=== PATIENT | female | born 1980 | race Caucasian/White ===

== ENCOUNTER 2023-02-24 19:44 | Emergency (ER) | payer BC, SELFPAY ==
[2023-02-24 19:47] VITALS: BP 134/85; PULSE 87; RESP 18; TEMP 36.8; O2SAT 99; BMI 22.7
--- NOTE | 2023-02-24 20:15 | ED_ITS ---
HPI - Wound/Laceration General Date Seen: 02/24/23 Chief Complaint: Laceration/Wound Stated Complaint: Finger laceration Time Seen by Provider: 02/24/23 19:49 History of Present Illness HPI narrative: Very pleasant 42-year-old generally healthy female presenting to the ER today for laceration affecting her left hand ring finger (4th digit). Wound occurred at home just prior to arrival today. She recalls that she was driving her vehicle. She had stopped to check the mail. Somehow she got her ring caught on the edge of the mailbox as she was slowly pulling away from the mailbox. The mailbox pulled on her ring and as it was playing the ring off her finger and created a laceration. She suffered a laceration involving the skin of the proximal phalanx of the ring finger on her left hand. The laceration begins at its proximal and on the dorsal/radial aspect of the finger and then extends in a spiral fashion around the radial side of the finger and ends on the volar surface of the PIP joint. Bleeding was easily controlled by application of clean paper towel. The she has no associated numbness or tingling. She has intact ability to flex and extend her MCP, PIP, DI P joint. No other injuries. No deformity. No significant pain. She is unsure of her last tetanus shot. Related Data Allergies Allergy/AdvReac Type Severity Reaction Status Date / Time No Known Drug Allergies Allergy Verified 02/24/23 19:47 Exam Narrative: Exam Narrative: Constitutional: Appears well-developed and well-nourished. Alert. Conversant. Non toxic. HENT: Head: Atraumatic. Nose: Nose normal. Neck: Normal range of motion. Neck supple. No tracheal deviation present. Cardiovascular: No active bleeding. Brisk distal capillary refill. No signs of arterial injury or vascular compromise. Pulmonary/Chest: Effort normal. No stridor. No respiratory distress. Musculoskeletal-on injuries except for left hand 4th digit. She has a spiraling laceration on the left hand 4th digit. The proximal and the laceration is on the dorsum/radial aspect of the skin of the proximal phalanx. It extends in a spiral fashion distally around the radial aspect of the proximal phalanx and hands on the volar surface of the PIP joint. Total length of laceration is about 2 or 3 cm. The majority of the laceration is very superficial, extending barely into the dermis. The wound edges are not gaping. On the volar surface of the PIP joint the laceration is slightly deeper and extends into the dermis. It does create a small flap of epidermis/skin. It does not penetrate down into the IP joint capsule were down to the flexor tendon. No visible foreign body. No active bleeding. Intact distal cap refill. Intact radial and ulnar digital nerve sensory function. Neurological: Alert and oriented to person, place, and time. Normal strength. CN II-VII intact. No sensory deficit. GCS eye subscore is 4. GCS verbal subscore is 5. GCS motor subscore is 6. Normal coordination Skin: Skin is warm and dry. No rash noted. No pallor. Normal capillary refill. Psychiatric: Normal mood. Normal affect. Const: Vital Signs, click to edit/add: Vital Signs - 24 hr 02/24/23 19:47 Temperature 98.3 F Pulse Rate [Right Pulse Oximeter] 87 Respiratory Rate 18 Blood Pressure [Ri t Upper Arm] 134/85 Pulse Oximetry 99 Course Vital Signs Vital signs: Initial Vital Signs Temperature 98.3 F 02/24/23 19:47 Temperature Source Temporal Artery Scan 02/24/23 19:47 Pulse Rate 87 02/24/23 19:47 Pulse Rhythm Regular 02/24/23 19:47 Pulse Strength 3+ Normal 02/24/23 19:47 Respiratory Rate 18 02/24/23 19:47 Blood Pressure 134/85 02/24/23 19:47 Blood Pressure Mean 101 02/24/23 19:47 Blood Pressure Position Sitting 02/24/23 19:47 Pulse Oximetry 99 02/24/23 19:47 Vital Signs Temperature 98.3 F 02/24/23 19:47 Pulse Rate 87 02/24/23 19:47 Respiratory Rate 18 02/24/23 19:47 Blood Pressure 134/85 02/24/23 19:47 Pulse Oximetry 99 02/24/23 19:47 Temperature 98.3 F 02/24/23 19:47 Pulse Rate 87 02/24/23 19:47 Respiratory Rate 18 02/24/23 19:47 Blood Pressure 134/85 02/24/23 19:47 Pulse Oximetry 99 02/24/23 19:47 MDM - Wound/Laceration MDM Narrative Medical decision making narrative: Findings and exam are consistent with an uncomplicated laceration which was repaired as noted above. Based on the mechanism this could have been a severe injury. Fortunately there is no evidence for any degloving, or any tendon or joint injury. There is no evidence at this time to suggest any associated fracture or foreign body. There is no evidence to suggest tendon or arterial injury and patient is neurologically in tact. I had a discussion with the patient and her family about options for wound care including healing by secondary intention, sutures, or possibly wound closure with skin glue. Discussed the risk with skin glue would be that there is a risk for dehiscence since the wound is near the PIP joint. Patient strongly prefers to do skin glue and wants to avoid needles and stitches if possible. Wound was repaired as noted above with Dermabond. Tetanus is updated today.. Indications to seek urgent reevaluation and signs of infection (including but not limited to increasing pain, redness, swelling, fevers, and drainage) were reviewed. This is a clean and non-contaminated wound in which prophylactic antibiotics are not indicated. An understanding of the discharge instructions and need for follow up were verbally confirmed. Discharge Plan Discharge Patient Disposition: Home, Self-Care Activity Level: No Restrictions Discharge Diet: Regular Follow Up/Referrals: Fred Lorenzana MD [Primary Care Provider] - Stand Alone Forms: 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 Description: linear and clean Depth: simple, single layer Pre-repair: wound explored and deep structures intact
[2023-02-24] MEDS: TETANUS/DIPHTH/PERTUSSIS 0.5 ML SYRINGE IM (20:18)
== END 2023-02-24 20:42 | disposition home or self-care (01) ==
LOC: ED 20:39
PROVIDERS: Emergency Provider Emergency Medicine; PCP Family Medicine
DX: S61.215A Laceration without foreign body of left ring finger without damage to nail, initial encounter (principal); Z23 Encounter for immunization; W26.9XXA Contact with unspecified sharp object(s), initial encounter
CPT/HCPCS: 12001; 90471; 90715; 99282; 99283

== ENCOUNTER 2024-10-16 12:34 | Outpatient (CLI) | payer BC, SELFPAY ==
--- NOTE | 2024-10-16 14:08 | P.ANES_ITS ---
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
--- NOTE | 2024-10-16 14:08 | W.ANESCHARGE ---
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
== END 2024-10-16 12:35 | disposition home or self-care (01) ==
LOC: OP CLINIC 12:37
PROVIDERS: PCP Family Medicine; Visit Provider Internal Medicine Gastroenterology
DX: D12.0 Benign neoplasm of cecum (principal); Q43.8 Other specified congenital malformations of intestine; Z09 Encounter for follow-up examination after completed treatment for conditions other than malignant neoplasm; Z86.0101 Personal history of adenomatous and serrated colon polyps
CPT/HCPCS: 00811; 45385; 88305; J2704

== ENCOUNTER 2025-01-23 11:17 | Outpatient (CLI) | payer BC, SELFPAY | END 2025-01-23 11:18 | disposition home or self-care (01) | PROVIDERS: PCP Family Medicine; Visit Provider Nurse Practitioner Family | DX: R21 Rash and other nonspecific skin eruption (principal); S30.861A Insect bite (nonvenomous) of abdominal wall, initial encounter; S70.362A Insect bite (nonvenomous), left thigh, initial encounter | CPT/HCPCS: 86618 ==